=== PATIENT | male | born 1965 | race Hispanic/Latino ===

== ENCOUNTER 2017-08-24 15:50 | Emergency (ER) | payer SELFPAY ==
[2017-08-24] MEDS ORDERED: Ondansetron ODT 4 MG TAB ONE (17:29)
[2017-08-24 18:02] LABS: ALT (SGPT) 61 U/L (8-55); AST (SGOT) 57 U/L (5-34); Albumin 4.1 g/dL (3.5-5.0); Alkaline Phosphatase 86 U/L (40-150); Anion Gap 15 mmol/L (10-20); BUN (Urea Nitrogen) 14 mg/dL (8.9-20.6); Bilirubin, Total 0.8 mg/dL (0.2-1.2); CK (CPK) 617 U/L (30-200); Calc. Creatinine Clearance 0 mL/min (70-130); Calcium 9.7 mg/dL (7.8-10.44); Carbon Dioxide 23 mmol/L (22-29); Chloride 102 mmol/L (98-107); Estimated GFR-MDRD 79; Globulin 4.3 g/dL (2.4-3.5); Glucose 136 mg/dL (70-105); Potassium 3.5 mmol/L (3.5-5.1); Protein, Total 8.4 g/dL (6.0-8.3); Sodium 136 mmol/L (136-145)
[2017-08-24] MEDS ORDERED: Acetaminophen 500 MG TAB ONE (18:35)
== END 2017-08-24 19:55 | disposition home or self-care (01) ==
LOC: ERS 15:50
DX: J10.1 Influenza due to other identified influenza virus with other respiratory manifestations (principal)
CPT/HCPCS: 36415; 80053; 82550; 96360; Q0162

== ENCOUNTER 2018-03-28 | Inpatient (IN) | payer MEDICAID | END 2018-04-13 12:33 | disposition home or self-care (01) | DRG 871 | PROVIDERS: ADMIT Family Medicine | PROC: 30233N1 Transfusion of Nonautologous Red Blood Cells into Peripheral Vein, Percutaneous Approach (ICD-10-PCS; principal; 2018-03-31) | PROC: 07DR3ZX Extraction of Iliac Bone Marrow, Percutaneous Approach, Diagnostic (ICD-10-PCS; 2018-04-01) | DX: A41.9 Sepsis, unspecified organism (principal); D61.810 Antineoplastic chemotherapy induced pancytopenia; J15.9 Unspecified bacterial pneumonia; C91.40 Hairy cell leukemia not having achieved remission; I82.A19 Acute embolism and thrombosis of unspecified axillary vein; D53.9 Nutritional anemia, unspecified ==

== ENCOUNTER 2018-04-19 01:26 | Inpatient (IN) | payer OTHER, SELFPAY ==
[2018-04-19 02:07] LABS: Hemoglobin 9.1 g/dL (14.0-18.0); Mean Corpuscular Hemoglobin 33.1 pg (27.0-31.0); Mean Corpuscular Volume 97.4 fL (78.0-98.0); Mean Platelet Volume 9.3 fL (7.4-10.4); Platelet Count 84 thou/uL (130-400); RBC Distribution Width 17.1 % (11.5-14.5); Red Blood Cell (RBC) Count 2.75 mill/uL (4.70-6.10); White Blood Cell (WBC) Count 1.8 thou/uL (4.8-10.8)
[2018-04-19 02:17] LABS: ALT (SGPT) 57 U/L (8-55); AST (SGOT) 25 U/L (5-34); Albumin 3.7 g/dL (3.5-5.0); Alkaline Phosphatase 121 U/L (40-150); Anion Gap 17 mmol/L (10-20); BUN (Urea Nitrogen) 16 mg/dL (8.9-20.6); Bilirubin, Total 0.4 mg/dL (0.2-1.2); Calc. Creatinine Clearance 0 mL/min (70-130); Calcium 9.2 mg/dL (7.8-10.44); Carbon Dioxide 18 mmol/L (22-29); Chloride 103 mmol/L (98-107); Estimated GFR-MDRD Greater than 90; Glucose 130 mg/dL (70-105); Potassium 3.9 mmol/L (3.5-5.1); Protein, Total 7.7 g/dL (6.0-8.3); Sodium 134 mmol/L (136-145)
[2018-04-19 02:21] LABS: Band 4 % (5-11); Eosinophils 2 % (0-10); Hypochromia SLIGHT = 6-15 cells (100X) (0-5/hpf); Lymphocytes 70 % (21-51); MDiff Complete? YES; Monocytes 8 % (0-10); Neutrophil 16 % (42-75); PLT Morphology Comment Appears Decreased
[2018-04-19] MEDS ORDERED: Cefepime 2 GM VIAL ONE (02:27)
[2018-04-19] MEDS ORDERED: Acetaminophen 500 MG TAB ONE (02:27)
[2018-04-19 02:58] LABS: Bilirubin Negative (Negative); Blood, Urine Negative (Negative); Clarity CLEAR (Clear); Glucose, Urine (Dipstick) Negative (Negative); Leukocyte Negative (Negative); Nitrite Negative (Negative); Protein, Urine (Dipstick) Negative (Neg-Trace); Specific Gravity, Urine 1.004 (1.002-1.036); Urobilinogen 0.2 mg/dL (0.2-1.0)
[2018-04-19] MEDS ORDERED: Ondansetron HCl/PF 4 MG/2 ML Vial IVP PRN (04:30)
[2018-04-19] MEDS ORDERED: Acetaminophen 325 MG TAB PO PRN (04:30)
[2018-04-19] MEDS ORDERED: Ondansetron ODT 4 MG TAB SL PRN ×2 (04:30→14:58)
[2018-04-19 04:34] VITALS: BMI 26.7
[2018-04-19] MEDS: Sodium Chloride 0.9% 1,000 ML IV SCH ×4 (04:54→19:31)
[2018-04-19 06:05] LABS: Lactic Acid 1.6 mmol/L (0.5-2.2)
--- NOTE | 2018-04-19 08:37 | RAD ---
AP CHEST: HISTORY: Sepsis. COMPARISON: 04/01/18. FINDINGS: Patchy infiltrate in the left lower lung field is noted. Right lung remains clear. Heart and medias tinum unremarkable. IMPRESSION: Patchy left lower lobe lung infiltrate, similar to the prior study. POS: [facility]
[2018-04-19] MEDS: Famotidine 20 MG TAB PO SCH ×2 (09:30→19:31)
[2018-04-19] MEDS: Vancomycin HCl 1 GM in Premix Bag 1 BAG IVPB SCH ×2 (11:03→19:30)
[2018-04-19] MEDS ORDERED: Cefepime 1 GM in Sodium Chloride 0.9% 100 ML IVPB SCH (14:00)
--- NOTE | 2018-04-19 14:46 | HP ---
DATE OF ADMISSION: 04/19/2018 CHIEF COMPLAINT: Fever. HISTORY OF PRESENT ILLNESS: This patient is a 52-year-old male, who has a history of recent admissio n with left lower lobe pneumonia. At that time, the patient was noted to have pancytopenia. He was evaluated by Oncology in consultation. He underwent a bone marrow biopsy, which ultimately revealed hairy cell leukemia. The patient was subsequently started on IV chemotherapy. Subsequently, the pat ient was discharged to home to continue with oral cephalosporin. The patient felt well at that time and did well at home for a period, but on the day of admission had recurrence of fever starting the e vening before. The patient returned to the hospital as instructed with the recurrence of the fever. He denies any other associated symptoms. REVIEW OF SYSTEMS: A 10-system review is negative. The patient specifically denies any cough, short ness of breath, diarrhea, constipation, muscle, bone, joint problems, skin lesions or rashes chest pa ins, palpitations, nausea, vomiting. He does report some poor sleep last night associated with the f ever, but otherwise all pertinent review information is in the history of present illness. PAST MEDICAL HISTORY: As noted above, significant for the recent diagnosis of the hairy cell leukemi a and initiating first round of chemotherapy. He also had the left lower lobe pneumonia and a left a xillary vein thrombosis, while in the hospital previously. PAST SURGICAL HISTORY: None. FAMILY HISTORY: Reviewed and nothing relevant to this admission. SOCIAL HISTORY: The patient is . His diligently attends to him even though he is here [facility]. No history of alcohol, tobacco, or drug use. He is a [employer] and his would b e the surrogate decision maker. ALLERGIES: None. HOME MEDICATIONS: Cefdinir 300 mg p.o. b.i.d. PHYSICAL EXAMINATION: VITAL SIGNS: Temperature 98.7, pulse 92, respirations 18, O2 sat 96% on room air, BP 94/54. GENERAL APPEARANCE: Age-appropriate male. He is in no distress. Awake, alert, oriented, pleasant, cooperative. HEENT: PERRL. No OP lesions. No oropharyngeal erythema. NECK: Supple and symmetric with no lymphadenopathy. HEART: Regular rate and rhythm without murmurs, gallops, or rubs. LUNGS: Clear to auscultation with the exception of some left basilar Velcro-type crackles. ABDOMEN: Soft, nontender, nondistended. No hepatosplenomegaly. EXTREMITIES: Warm and dry. No edema. SKIN EXAM: Reveals no erythema, lesions, or rashes. MUSCULOSKELETAL EXAM: Reveals normal tone and strength with no axillary or inguinal lymphadenopathy. LABORATORY DATA: White count 1.8, hemoglobin 9.1, platelets 84. He has 16% neutrophils, 4% bands, a nd 70% lymphocytes. Sodium 134, potassium 3.9, chloride 103, CO2 of 18, BUN 16, creatinine 0.4, gluc ose 130. Lactic acid 2.6 with a repeat of 1.6, AST 25, ALT is 57. Urinalysis is negative. Chest x- ray reveals the persistent left lower lobe infiltrate. ASSESSMENT AND PLAN: 1. Neutropenic fever. Patient recently was diagnosed with hairy cell leukemia and started on chemot herapy. Now returns with a febrile illness. He is on vancomycin and cefepime from the emergency [facility] and will continue with those for the time being. We will follow up on any pertinent cultures. 2. Left lower lobe pneumonia. This patient has had the left lower lobe pneumonia for several weeks now. He continues to have some evidence of infiltrate on x-ray and physical exam findings, although he is otherwise asymptomatic with the exception of possibly having related fever. May need to get a CT scan if this does not resolve promptly. Could possibly be some type of leukemic infiltrate as wel l. 3. History of a left axillary deep vein thrombosis. The patient was not treated for this as an outp atient and remains thrombocytopenic now. We will avoid any aggressive anticoagulation for now.
[2018-04-19] MEDS ORDERED: Ondansetron HCl/PF 4 MG/2 ML Vial SLOW IVP PRN (14:58)
[2018-04-19] MEDS ORDERED: Vancomycin HCl 1 GM in Premix Bag 1 BAG IVPB SCH (15:00)
[2018-04-19] MEDS: Acetaminophen 325 MG TAB PO PRN (19:36)
[2018-04-19] MEDS: Cefepime 2 GM in Sodium Chloride 0.9% 100 ML IVPB SCH (21:17)
--- NOTE | 2018-04-19 22:18 | CON ---
DATE OF CONSULTATION: 04/19/2018 HISTORY OF PRESENT ILLNESS: The patient is a 52-year-old male who was diagnosed with hairy cell leukemia following bone marrow examination of 04/01/2018. He was treated with 2-CdA approximate ly 2 weeks ago. The patient was doing well until the night of 04/18/2018 when he developed fever. T he patient said he also had mild chills, but he is quite certain that he did actually have chills in association with fevers. He has been admitted through the emergency room as leukopenic fever. He de nies dysuria and cough. CURRENT MEDICATIONS: Vancomycin 1 g q.12h., cefepime 1 g q.12h., Zofran and Pepcid. PHYSICAL EXAMINATION: GENERAL: Patient appears appropriate. He is alert and oriented. VITAL SIGNS: Temperature 102.9, pulse 100, respirations 16, blood pressure 109/63. CHEST: Clear percussion and auscultation. HEART: Regular rhythm. S1 and S2. ABDOMEN: Soft without hepatosplenomegaly. EXTREMITIES: Without pedal edema. LABORATORY AND X-RAY FINDINGS: CBC shows WBC of 1800 with hemoglobin 9.1 and platelet count of 84,00 0. Differential shows 20% granulocytes, and 70% lymphocytes. Chemistry profile shows normal BUN, cr eatinine and potassium. Chest x-ray shows questionable infiltrate in the left lower lobe. ASSESSMENT AND RECOMMENDATIONS: This patient is neutropenic and thrombocytopenic as a result of 2-Cd A. Fever is likely from infection, though to also cause fever. He has been cultured and start ed on antibiotics. This should be continued for now. Towards the middle of next week we will have t o decide if to let him go home in spite of neutropenia, which is likely to last for at least for anot her couple of weeks.
[2018-04-20 02:41] LABS: Hemoglobin 8.2 g/dL (14.0-18.0); Mean Corpuscular HGB CONC 33.8 g/dL (32.0-36.0); Mean Corpuscular Hemoglobin 33.8 pg (27.0-31.0); Mean Corpuscular Volume 99.9 fL (78.0-98.0); Mean Platelet Volume 9.2 fL (7.4-10.4); Platelet Count 78 thou/uL (130-400); RBC Distribution Width 17.6 % (11.5-14.5); Red Blood Cell (RBC) Count 2.42 mill/uL (4.70-6.10); White Blood Cell (WBC) Count 0.9 thou/uL (4.8-10.8)
[2018-04-20 02:54] LABS: Band 4 % (5-11); Lymphocytes 60 % (21-51); MDiff Complete? YES; Metamyelocyte 2 % (0-0); Monocytes 2 % (0-10); Neutrophil 32 % (42-75); PLT Morphology Comment Appears Decreased; Vancomycin, Trough 10.2 ug/mL
[2018-04-20 03:16] LABS: Anion Gap 11 mmol/L (10-20); BUN (Urea Nitrogen) 8 mg/dL (8.9-20.6); Calc. Creatinine Clearance 126 mL/min (70-130); Calcium 8.9 mg/dL (7.8-10.44); Carbon Dioxide 24 mmol/L (22-29); Chloride 109 mmol/L (98-107); Estimated GFR-MDRD Greater than 90; Glucose 111 mg/dL (70-105); Potassium 4.3 mmol/L (3.5-5.1); Sodium 140 mmol/L (136-145)
[2018-04-20] MEDS: Vancomycin HCl 1.25 GM in Sodium Chloride 0.9% 250 ML 250 ML IVPB SCH ×3 (03:28→19:53)
[2018-04-20] MEDS: Acetaminophen 325 MG TAB PO PRN ×2 (03:31→20:01)
[2018-04-20] MEDS: Cefepime 2 GM in Sodium Chloride 0.9% 100 ML IVPB SCH ×3 (05:31→22:07)
[2018-04-20] MEDS: Sodium Chloride 0.9% 1,000 ML IV SCH ×2 (05:31→12:17)
[2018-04-20] MEDS: Famotidine 20 MG TAB PO SCH ×2 (08:37→20:07)
[2018-04-20] MEDS ORDERED: Prevnar 13-Val Conj/PF 0.5 ML SYRINGE IM ONE (09:00)
--- NOTE | 2018-04-20 10:21 | PDOC.PN ---
- Subjective Encounter Start Date: 04/20/18 Encounter Start Time: 10:20 No complaints. Occasional mild headache, but no sinus congestion. - Objective Resuscitation Status: Resuscitation Status FULL:Full Resuscitation MAR Reviewed: Yes Vital Signs & Weight: Vital Signs (12 hours) Temp Pulse Resp BP Pulse Ox 04/20/18 07:30 99.5 F 98 18 97 04/20/18 07:26 99.5 F 98 18 96/53 L 97 04/20/18 04:00 98.7 F 96 18 108/65 97 04/20/18 03:33 100.3 F H 94 04/19/18 23:32 98.8 F Weight Weight 155 lb 13.869 oz I&O: 04/19/18 04/20/18 04/21/18 06:59 06:59 06:59 Intake Total 3485 Balance 3485 Result Diagrams: 04/20/18 01:47 04/20/18 01:47 Phys Exam - Physical Examination Constitutional: NAD HEENT: PERRLA, oral pharynx no lesions Neck: no nodes, no JVD Respiratory: no wheezing, no rhonchi, clear to auscultation bilateral Left basilar rales slightly better. Cardiovascular: RRR, no significant murmur Gastrointestinal: soft, non-tender, no distention, positive bowel sounds Neurological: non-focal Lymphatic: no nodes Psychiatric: normal affect Skin: no rash Dx/Plan (1) Neutropenic fever Code(s): D70.9 - NEUTROPENIA, UNSPECIFIED; R50.81 - FEVER PRESENTING WITH CONDITIONS CLASSIFIED ELSEWHERE Status: Acute (2) Hairy cell leukemia Code(s): C91.40 - HAIRY CELL LEUKEMIA NOT HAVING ACHIEVED REMISSION Status: Acute (3) Pneumonia, community acquired Code(s): J18.9 - PNEUMONIA, UNSPECIFIED ORGANISM Status: Acute Qualifiers: Comment: Primarily just residual from initial presentation. Unclear if this is culprit in the current neutropenic fever. - Plan * Continue broad spectrum abx with IV Vand, Cefepime. Blood cx negative thus far. Appreciate Onc input. May be a prolonged neutropenic state. If fever resolves and cultures remain negative, may consider discharge even if neutropenic..
[2018-04-21] MEDS: Sodium Chloride 0.9% 1,000 ML IV SCH ×3 (02:50→21:12)
[2018-04-21 03:12] LABS: Hemoglobin 7.6 g/dL (14.0-18.0); Mean Corpuscular HGB CONC 33.6 g/dL (32.0-36.0); Mean Corpuscular Hemoglobin 33.5 pg (27.0-31.0); Mean Corpuscular Volume 99.7 fL (78.0-98.0); Mean Platelet Volume 8.4 fL (7.4-10.4); Platelet Count 74 thou/uL (130-400); RBC Distribution Width 17.1 % (11.5-14.5); Red Blood Cell (RBC) Count 2.27 mill/uL (4.70-6.10); White Blood Cell (WBC) Count 0.8 thou/uL (4.8-10.8)
[2018-04-21 03:23] LABS: Vancomycin, Trough 14.3 ug/mL
[2018-04-21 03:38] LABS: Anion Gap 10 mmol/L (10-20); BUN (Urea Nitrogen) 6 mg/dL (8.9-20.6); Calc. Creatinine Clearance 130 mL/min (70-130); Calcium 8.7 mg/dL (7.8-10.44); Carbon Dioxide 24 mmol/L (22-29); Chloride 110 mmol/L (98-107); Estimated GFR-MDRD Greater than 90; Glucose 113 mg/dL (70-105); Sodium 140 mmol/L (136-145)
[2018-04-21] MEDS: Vancomycin HCl 1.25 GM in Sodium Chloride 0.9% 250 ML 250 ML IVPB SCH ×2 (03:46→11:43)
[2018-04-21 03:47] LABS: Band 12 % (5-11); Hypochromia SLIGHT = 6-15 cells (100X) (0-5/hpf); Lymphocytes 60 % (21-51); MDiff Complete? YES; Monocytes 8 % (0-10); Neutrophil 20 % (42-75); Nucleated RBC 0 % (0); PLT Morphology Comment Appears Decreased
[2018-04-21] MEDS: Cefepime 2 GM in Sodium Chloride 0.9% 100 ML IVPB SCH (06:10)
[2018-04-21] MEDS: Acetaminophen 325 MG TAB PO PRN (06:13)
[2018-04-21] MEDS: Famotidine 20 MG TAB PO SCH ×2 (09:04→21:08)
--- NOTE | 2018-04-21 09:59 | PDOC.PN ---
- Subjective Encounter Start Date: 04/21/18 Encounter Start Time: 09:57 No new problems except occasional mild headache. Breathing comfortably. No cough. - Objective Resuscitation Status: Resuscitation Status FULL:Full Resuscitation Vital Signs & Weight: Vital Signs (12 hours) Temp Pulse Resp BP Pulse Ox 04/21/18 08:00 99.1 F 81 22 H 104/56 L 95 04/21/18 07:41 98.0 F 77 20 04/21/18 04:00 98.0 F 77 20 107/62 97 04/21/18 00:00 98.9 F 83 16 119/66 95 Weight Weight 155 lb 13.869 oz I&O: 04/20/18 04/21/18 04/22/18 06:59 06:59 06:59 Intake Total 3485 6000 Balance 3485 6000 Result Diagrams: 04/21/18 02:56 04/21/18 02:56 Phys Exam - Physical Examination Constitutional: NAD Respiratory: no wheezing, no rhonchi Fine rales left base. Cardiovascular: RRR, no significant murmur, no rub Gastrointestinal: soft, non-tender, no distention, positive bowel sounds Musculoskeletal: no edema Neurological: non-focal Psychiatric: normal affect Dx/Plan (1) Neutropenic fever Code(s): D70.9 - NEUTROPENIA, UNSPECIFIED; R50.81 - FEVER PRESENTING WITH CONDITIONS CLASSIFIED ELSEWHERE Status: Acute (2) Hairy cell leukemia Code(s): C91.40 - HAIRY CELL LEUKEMIA NOT HAVING ACHIEVED REMISSION Status: Acute (3) Pneumonia, community acquired Code(s): J18.9 - PNEUMONIA, UNSPECIFIED ORGANISM Status: Acute Qualifiers: Comment: Primarily just residual from initial presentation. Unclear if this is culprit in the current neutropenic fever. (4) Pancytopenia Code(s): D61.818 - OTHER PANCYTOPENIA Status: Acute - Plan * continue neutropenic precautions * Continue IV Vanc and Cefepime. * Monitor counts daily. * May need transfusion soon. .
[2018-04-21] MEDS: Enoxaparin Sodium 60 MG/0.6 ML SYRINGE SC SCH (21:09)
[2018-04-22] MEDS: Sodium Chloride 0.9% 1,000 ML IV SCH ×2 (04:03→11:27)
[2018-04-22 04:40] LABS: Hemoglobin 7.4 g/dL (14.0-18.0); Platelet Count 84 thou/uL (130-400)
[2018-04-22 04:50] LABS: Anion Gap 13 mmol/L (10-20); BUN (Urea Nitrogen) 6 mg/dL (8.9-20.6); Calc. Creatinine Clearance 136 mL/min (70-130); Calcium 8.4 mg/dL (7.8-10.44); Carbon Dioxide 22 mmol/L (22-29); Chloride 109 mmol/L (98-107); Estimated GFR-MDRD Greater than 90; Glucose 108 mg/dL (70-105); Potassium 4.1 mmol/L (3.5-5.1); Sodium 140 mmol/L (136-145)
[2018-04-22 04:59] LABS: Band 2 % (5-11); Hemoglobin 7.3 g/dL (14.0-18.0); Lymphocytes 84 % (21-51); MDiff Complete? YES; Mean Corpuscular HGB CONC 34.1 g/dL (32.0-36.0); Mean Corpuscular Hemoglobin 33.7 pg (27.0-31.0); Mean Corpuscular Volume 98.9 fL (78.0-98.0); Mean Platelet Volume 8.5 fL (7.4-10.4); Neutrophil 14 % (42-75); PLT Morphology Comment Appears Decreased; Platelet Count 83 thou/uL (130-400); RBC Distribution Width 17.1 % (11.5-14.5); Red Blood Cell (RBC) Count 2.17 mill/uL (4.70-6.10)
[2018-04-22 07:09] VITALS: BP 96/60; TEMP 98
[2018-04-22] MEDS: Famotidine 20 MG TAB PO SCH (08:35)
[2018-04-22] MEDS: Enoxaparin Sodium 60 MG/0.6 ML SYRINGE SC SCH (08:38)
--- NOTE | 2018-04-22 23:13 | DIS ---
DATE OF ADMISSION: 04/19/2018 DATE OF DISCHARGE: 04/22/2018 DISCHARGE DIAGNOSES: 1. Neutropenic fever. 2. Hairy cell leukemia. 3. Pancytopenia. 4. Possible left lower lobe pneumonia. 5. Recent diagnosis of right upper extremity deep vein thrombosis. HISTORY: This patient is a 52-year-old male, who was recently admitted with a left lower lobe pneumonia and a significant left lower lobe infiltrate and fever. At that time, the patient was pancytopenic. He had a bone marrow biopsy , which confirmed a hairy cell leukemia. The patient was subsequently discharged and had outpatient chemotherapy. He then developed fever and presented back to the hospital with a neutropenic fever. HOSPITAL COURSE: The patient was admitted to the Oncology unit. He was started on broad-spectrum antibiotics with vancomycin and cefepime. He subsequently defervesced. All cultures remain negative and the only evidence of any potential infection was the persistent left lower lobe findings, which were likely residual. The patient did defervesce after about 48 hours. Oncology was consulted and recommended changing the patient to p.o. Levaquin, and if he remained afebrile for 24 hours, he could be discharged. That was, in fact, the case. Patient remained asymptomatic. His fever curve was normal and he was felt stable for discharge. Day of discharge: T 98.6 P 67 R 16, RASaO2 98% BP 96/60 Gen: Appears well, no distress Heart: Reg, no Murmurs Lungs: Modest left basilar rales, but improved. Abd: Soft, NT/ND Ext: No edema WBC 1.0, Hgb 7.4, Plt 84 DISPOSITION: The patient is discharged to home. He is to have his activity level as tolerated. He was educated on neutropenic precautions at home. He is to avoid ill contacts and large crowds. He is to have a regular diet. He will be on Levaquin 750 mg p.o. every day. He will resume Xarelto 20 mg every day, and go to the Oncology clinic for samples. He is to follow up with Dr. De La Torre in 7 days. He can return to the emergency department should he have any problems prior to that time. [facility]
--- NOTE | 2018-04-23 12:44 | EKG ---
Test Reason : Blood Pressure : / mmHG Vent. Rate : 122 BPM Atrial Rate : 122 BPM P-R Int : 124 ms QRS Dur : 076 ms QT Int : 330 ms P-R-T Axes : 064 018 -11 degrees QTc Int : 470 ms Sinus tachycardia Possible Left atrial enlargement T wave abnormality, consider inferior ischemia Abnormal ECG Confirmed by SHANNAN CASPER D.O. ([id number]), publishing editor HIPOLITO COELLO ([id number] on 04/23/2018 12:44:11 PM Referred By: Confirmed By:SHANNAN CASPER D.O.
== END 2018-04-22 11:46 | disposition home or self-care (01) | DRG 808 ==
LOC: ERS 01:26 → ONC 04:08
PROVIDERS: ADMIT Internal Medicine; ATTEND Internal Medicine
DX: D70.9 Neutropenia, unspecified (principal); J18.9 Pneumonia, unspecified organism; C91.40 Hairy cell leukemia not having achieved remission; R50.81 Fever presenting with conditions classified elsewhere; Z86.718 Personal history of other venous thrombosis and embolism
CPT/HCPCS: 36415; 71046; 80048; 80053; 80202; 81003; 83605; 85007; 85025; 85027; 87040; 87086; 93005; 96365; 96367; A4216; J0692; J1650; J3370; J7050

== ENCOUNTER 2018-05-13 11:47 | Day surgery (SDC) | payer OTHER, SELFPAY ==
[2018-05-13] MEDS ORDERED: Sodium Chloride 0.9% 30 ML ONE (12:15)
[2018-05-13] MEDS ORDERED: Acetaminophen 500 MG TAB PO SCH (12:15)
[2018-05-13] MEDS ORDERED: diphenhydrAMINE 25 MG CAP PO SCH (12:15)
[2018-05-13 15:48] VITALS: TEMP 98.1
[2018-05-13 16:01] LABS: Platelet Count 67 thou/uL (130-400)
[2018-05-13 18:38] VITALS: BP 125/71
== END 2018-05-13 18:49 | disposition home or self-care (01) ==
LOC: ONC/OP 11:47
PROVIDERS: ATTEND Nurse Practitioner Acute Care
DX: D64.9 Anemia, unspecified (principal); D69.6 Thrombocytopenia, unspecified
CPT/HCPCS: 36430; 85014; 85018; 85049; 86850; 86900; 86901; A4216; P9016

== ENCOUNTER 2018-06-04 08:30 | Day surgery (SDC) | payer OTHER, SELFPAY ==
[2018-06-04] MEDS ORDERED: Sodium Chloride 0.9% 20 ML ONE (09:04)
[2018-06-04] MEDS ORDERED: Acetaminophen 500 MG TAB PO SCH (09:15)
[2018-06-04] MEDS ORDERED: diphenhydrAMINE 25 MG CAP PO SCH (09:15)
[2018-06-04 13:35] LABS: Hemoglobin 8.1 g/dL (14.0-18.0)
[2018-06-04 14:45] VITALS: TEMP 98.1
[2018-06-04 16:31] VITALS: BP 93/51
== END 2018-06-04 16:32 | disposition home or self-care (01) ==
LOC: ONC/OP 08:30
PROVIDERS: ATTEND Internal Medicine Hematology & Oncology
DX: D64.9 Anemia, unspecified (principal); D69.6 Thrombocytopenia, unspecified
CPT/HCPCS: 36415; 36430; 85014; 85018; 86850; 86900; 86901; A4216; P9016

== ENCOUNTER 2020-08-27 07:31 | Emergency (ER) | payer OTHER, SELFPAY ==
[2020-08-27] MEDS ORDERED: Ondansetron PF 4 MG/2 ML Vial ONE (07:53)
[2020-08-27 08:17] LABS: #Lymphocytes 1.8 thou/uL (1.20-3.40); #Monocytes 0.6 thou/uL (0.11-0.59); #Neutrophils 2.9 thou/uL (1.40-6.50); %Basophils 0.1 % (0.0-1.0); %Eosinophils 0.1 % (0.0-10.0); %Lymphocytes 33.7 % (21.0-51.0); %Monocytes 10.7 % (0.0-10.0); %Neutrophils 55.4 % (42.0-75.0); Hemoglobin 15.2 g/dL (14.0-18.0); Mean Corpuscular HGB CONC 32.5 g/dL (32.0-36.0); Mean Corpuscular Hemoglobin 28.5 pg (27.0-31.0); Mean Corpuscular Volume 87.8 fL (78.0-98.0); Platelet Count 123 thou/uL (130-400); RBC Distribution Width 12.2 % (11.5-14.5); Red Blood Cell (RBC) Count 5.32 mill/uL (4.70-6.10); White Blood Cell (WBC) Count 5.2 thou/uL (4.8-10.8)
--- NOTE | 2020-08-27 08:32 | RAD ---
Chest one view HISTORY: Fever. Chest pain. COMPARISON: 04/19/2018. FINDINGS: Cardiac silhouette is magnified by projection. Pulmonary vasculature are unremarkable. Mediastinum is midline. No confluent airspace consolidation or evidence of pneumothorax. IMPRESSION : No abnormalities are demonstrated.
[2020-08-27 08:37] LABS: ALT (SGPT) 46 U/L (8-55); AST (SGOT) 28 U/L (5-34); Albumin 4.4 g/dL (3.5-5.0); Alkaline Phosphatase 80 U/L (40-110); Anion Gap 14 mmol/L (10-20); BUN (Urea Nitrogen) 12 mg/dL (8.4-25.7); Bilirubin, Total 0.5 mg/dL (0.2-1.2); Calc. Creatinine Clearance 0 mL/min (70-130); Calcium 8.8 mg/dL (7.8-10.44); Carbon Dioxide 25 mmol/L (22-29); Chloride 103 mmol/L (98-107); Globulin 3.7 g/dL (2.4-3.5); Glucose 112 mg/dL (70-105); Lipase 24 U/L (8-78); Potassium 3.8 mmol/L (3.5-5.1); Protein, Total 8.1 g/dL (6.0-8.3); Sodium 138 mmol/L (136-145)
== END 2020-08-27 09:00 | disposition home or self-care (01) ==
LOC: ERS 07:31
DX: R53.83 Other fatigue (principal); R11.0 Nausea
CPT/HCPCS: 71045; 80053; 83690; 85025; 93005; 96374; J2405

== ENCOUNTER 2020-08-30 02:32 | Emergency (ER) | payer SELFPAY ==
[2020-08-30] MEDS ORDERED: Ondansetron ODT 4 MG TAB ONE (02:54)
[2020-08-30] MEDS ORDERED: Ibuprofen 800 MG TAB ONE (02:54)
[2020-08-30] MEDS ORDERED: Acetaminophen 500 MG TAB ONE (02:54)
[2020-08-30 09:23] LABS: SARS-CoV-2 MS2 Positive; SARS-CoV-2 N Gene Positive; SARS-CoV-2 S Gene Positive; SARS-CoV-2 by NAA DETECTED (NotDetected); SARS-CoV-2 orf1ab Positive
== END 2020-08-30 03:23 | disposition home or self-care (01) ==
LOC: ERS 02:32
DX: U07.1 COVID-19 (principal)
CPT/HCPCS: 87635; 99283; Q0162; U0003

== ENCOUNTER 2021-05-28 12:48 | Emergency (ER) | payer OTHER ==
[2021-05-28] MEDS ORDERED: Lidocaine 1% w/Epinephrine 1:100K 20 ML VIAL ONE (13:14)
[2021-05-28] MEDS ORDERED: Boostrix 0.5 ML (Tdap) VIAL ONE (13:14)
== END 2021-05-28 13:54 | disposition home or self-care (01) ==
LOC: ERS 12:48
DX: S01.81XA Laceration without foreign body of other part of head, initial encounter (principal); W21.89XA Striking against or struck by other sports equipment, initial encounter; Y93.66 Activity, soccer; Z23 Encounter for immunization
CPT/HCPCS: 12013; 90471; 90715